=== PATIENT | female | born 1935 | race Caucasian/White ===

== ENCOUNTER 2021-02-02 14:51 | Outpatient (CLI) | payer MEDICARE, SELFPAY ==
[2021-02-02 15:01] LABS: Basophils Absolute Auto 0.05 K/mm3 (0.00-0.10); Basophils Percent Auto 0.5 % (0.0-1.0); Eosinophils Absolute Auto 0.35 K/mm3 (0.02-0.50); Eosinophils Percent Auto 3.3 % (1.0-6.0); Hematocrit 39.6 % (35.0-42.0); Hemoglobin 12.2 g/dL (11.7-13.8); Immature Granulocyte Absolute 0.05 K/mm3 (0.00-0.00); Immature Granulocyte Percent A 0.5 % (0.0-0.0); Lymphocytes Absolute Auto 1.42 K/mm3 (1.10-4.50); Lymphocytes Percent Auto 13.2 % (18.0-42.0); Mean Corpuscular HGB Conc 30.8 g/dL (32.0-36.0); Mean Corpuscular Hemoglobin 32.4 pg (27.0-31.0); Mean Platelet Volume 9.6 fl (9.2-11.8); Monocytes Absolute Auto 0.93 K/mm3 (0.10-0.90); Monocytes Percent Auto 8.7 % (2.0-11.0); Neutrophils Absolute Auto 7.9 K/mm3 (1.7-7.2); Neutrophils Percent Auto 73.8 % (50.0-70.0); Platelet Count Result 360 K/mm3 (150-420); Red Blood Count 3.77 M/mm3 (4.20-5.40); Red Cell Distribution Width 13.5 % (11.6-14.4); White Blood Count 10.7 K/mm3 (4.8-10.8)
== END 2021-02-02 14:52 | disposition home or self-care (01) ==
PROVIDERS: PCP Family Medicine; Visit Provider Family Medicine
DX: I10 Essential (primary) hypertension (principal)
CPT/HCPCS: 36415; 85025

== ENCOUNTER 2021-02-14 11:37 | Outpatient (NON) | payer MEDICARE, SELFPAY ==
[2021-02-21 01:25] LABS: Calprotectin, Stool 14 mcg/g
== END 2021-02-14 11:38 | disposition home or self-care (01) ==
LOC: CHSLAB 11:39
PROVIDERS: Visit Provider Family Medicine
DX: K52.9 Noninfective gastroenteritis and colitis, unspecified (principal)
CPT/HCPCS: 83993; 87045; 87177; 87209; 87324; 87427

== ENCOUNTER 2021-02-24 10:25 | Inpatient (IN) | payer MEDICARE, MEDICAID, SELFPAY ==
[2021-02-24] VITALS (12 sets, daily range): BP systolic 99–209; BP diastolic 44–88; PULSE 70–88; RESP 16–20; TEMP 36.1–36.5; O2SAT 98–100; BMI 22.6
--- NOTE | ~2021-02-24 | XR_ITS ---
XR chest 1V portable DATE: 02/24/2021 11:10 INDICATION: Shortness of breath TECHNIQUE: Portable AP chest on 02/24/2021 1107 hours COMPARISON: 03/17/2018 PA and lateral chest FINDINGS: There are patchy infiltrates involving primarily the mid and lower lung zones and bilateral pneumonia. No pleural effusion. No pulmonary vascular congestion or pneumothorax. Heart size is norm al. There is extensive thoracic aortic calcification. Diffuse osteopenia. Probable old healed left surgical humeral neck fracture. Status post left thoracotomy. IMPRESSION: Patchy bilateral pulmonary infiltrates suggesting Covid pneumonia Reviewed, dictated and finalized at location A. RANCE CLAIM AUDITOR
--- NOTE | 2021-02-24 10:32 | ED.SOB ---
HPI - SOB/Dyspnea General Chief Complaint: Shortness of Breath/Dyspnea Stated Complaint: ambulance Time Seen by Provider: 02/24/21 10:32 Source: patient Mode of arrival: ambulatory History of Present Illness HPI Narrative: 85-year-old female, assisted living facility resident, with a history of dementia, hypertension, generalized anxiety disorder, breast cancer, lung cancer, rib fractures, COPD on home oxygen presents to the ER with -- ongoing shortness of breath. She went to her primary care physician on 02/21/2021 and was ordered antibiotics which she never started. -- Generalized weakness. She called EMS who noted her oxygen saturations to be 97% on 3 L FiO2. The patient is noted to be -- hypertensive for which she received IV hydralazine. MD elicited complaint: shortness of breath and cough Onset (ago): day(s) ( Patient has chronic shortness of breath which has gotten worse over the past few days.) Context: anxiety Severity: moderate Exacerbating factors: exertion Relieving factors: nothing and oxygen Known history of: COPD Associated symptoms: other ( Profound weakness) Treatment prior to arrival: none Related Data Home oxygen amount: 3 liters Home Medications Medication Instructions Recorded Confirmed cholecalciferol (vitamin D3) 25 1,000 unit PO DAILY 01/22/19 02/24/21 mcg (1,000 unit) capsule magnesium 250 mg PO DAILY 02/24/21 02/24/21 melatonin 5 mg PO QHS PRN 02/24/21 02/24/21 Allergies Allergy/AdvReac Type Severity Reaction Status Date / Time Sulfa (Sulfonamide Allergy Unknown Unknown Verified 02/24/21 11:49 Antibiotics) Review of Systems Review of Systems: All systems reviewed & are unremarkable except as noted in HPI and below Constitutional: Constitutional: Reports as per HPI and Reports no additional constitutional complaints Eyes: Eyes: Reports as per HPI and Reports no additional eye complaints ENT: Reports system reviewed and no additional complaints, except as documented Cardiovascular: Cardiovascular: Reports as per HPI and Reports no additional cardiovascular complaints Respiratory: Respiratory: Reports as per HPI, Reports no additional respiratory complaints, Reports cough and Reports dyspnea Gastrointestinal: Gastrointestinal: Reports as per HPI and Reports diarrhea Comments: patient has a history of chronic diarrhea. She had a colonoscopy 10 years ago. Genitourinary: Genitourinary: Reports no additional female genitourinary complaints Musculoskeletal: Musculoskeletal: Reports no additional musculoskeletal complaints Integumentary/Breasts: Skin/Breast: Reports system reviewed and no additional complaints, except as docu Neurologic: Reports system reviewed and no additional complaints, except as documented Psychiatric: Psychiatric: Reports no additional psychiatric complaints Endocrine: Endocrine: Reports no additional endocrine complaints Hematologic/Lymphatic: Hematologic/Lymphatic: Reports no additional hematologic/lymphatic complaints Allergic/Immunologic: Allergic/Immunologic: Reports no additional allergic/immunologic complaints PMFSH Past Medical History Medical History Anemia Breast cancer 2006 COPD (chronic obstructive pulmonary disease) Dementia REGAN (generalized anxiety disorder) GERD (gastroesophageal reflux disease) Hypertension Lung cancer Dx'd in 2003 Multiple fractures of ribs, right side, subsequent encounter for fracture with routine healing Muscular deconditioning Osteoarthritis Osteoporosis Surgical History Surgical History H/O breast augmentation History of mastectomy Right Breast 2009 History of rhinoplasty Family History Family History Mother Endometrial cancer Father Medical history unknown Social History Social History (Reviewed
--- NOTE | 2021-02-24 10:42 | ECG_ITS ---
Measurements Intervals [place] Rate: 78 P: 71 NC: 169 QRS: 52 QRSD: 86 T: 63 QT: 355 QTc: 406 Interpretive Statements SINUS RHYTHM POSSIBLE LEFT ATRIAL ENLARGEMENT ST ABNORMALITY IN ANTEROLAT/INF LEADS- CONSIDER ISCHEMIA BASELINE ARTIFACT- I, II, III, AVR, AVL, AVF, V1-V2 ABNORMAL ECG Electronically Signed On 02-24-2021 14:43:02 THAW SHED HEATER TENDER by Stanley Ji D.O.
[2021-02-24] MEDS: hydrALAZINE HCL 20 MG/ML VIAL 10 MG IV PUSH (10:45)
[2021-02-24 11:09] LABS: Basophils Absolute Auto 0.04 K/mm3 (0.00-0.10); Basophils Percent Auto 0.3 % (0.0-1.0); Eosinophils Absolute Auto 0.03 K/mm3 (0.02-0.50); Eosinophils Percent Auto 0.2 % (1.0-6.0); Hematocrit 41.1 % (35.0-42.0); Hemoglobin 12.8 g/dL (11.7-13.8); Immature Granulocyte Absolute 0.06 K/mm3 (0.00-0.00); Immature Granulocyte Percent A 0.4 % (0.0-0.0); Lymphocytes Absolute Auto 3.06 K/mm3 (1.10-4.50); Lymphocytes Percent Auto 22.5 % (18.0-42.0); Mean Corpuscular HGB Conc 31.1 g/dL (32.0-36.0); Mean Corpuscular Hemoglobin 31.4 pg (27.0-31.0); Mean Corpuscular Volume 100.7 fL (78.0-102.0); Mean Platelet Volume 9.2 fl (9.2-11.8); Monocytes Percent Auto 8.1 % (2.0-11.0); Neutrophils Absolute Auto 9.3 K/mm3 (1.7-7.2); Neutrophils Percent Auto 68.5 % (50.0-70.0); Platelet Count Result 366 K/mm3 (150-420); Red Blood Count 4.08 M/mm3 (4.20-5.40); Red Cell Distribution Width 12.8 % (11.6-14.4); White Blood Count 13.6 K/mm3 (4.8-10.8)
[2021-02-24 11:30] LABS: Alanine Aminotransferase 15 U/L (14-59); Albumin Level 3.7 g/dL (3.4-5.0); Alkaline Phosphatase 67 U/L (46-116); Anion Gap 8 mmol/L (8-16); Aspartate Amino Transferase 16 U/L (15-37); Bilirubin,Total 0.3 mg/dL (0.00-1.00); Blood Urea Nitrogen 53 mg/dL (7-18); Calcium 9.1 mg/dL (8.5-10.1); Carbon Dioxide 32 mmol/L (21-32); Chloride 108 mmol/L (98-108); Estimated Glomerular Filt Rate 28; Glucose 104 mg/dL (70-99); NT Pro B Type Natriuretic Pept 1185 pg/mL (0-450); Osmolality Calculated 320 mOsm/kg (285-295); Potassium 4.4 mmol/L (3.5-5.1); Sodium 148 mmol/L (136-145); Troponin I 12.5 ng/L (0.00-60.4)
[2021-02-24 11:43] LABS: SARS-CoV-2 RNA PCR Negative (Negative)
--- NOTE | 2021-02-24 13:20 | PC.NURSE ---
Patient admitted to room 203, oriented to room and call light. Oxygen at 3L per nasal cannula, patient reports she is breathing much better than when she arrived in ER. Sitting up in bed, phone and call light within reach.
[2021-02-24] MEDS: GABAPENTIN 100 MG CAPSULE PO ×2 (14:09→17:37)
[2021-02-24] MEDS: ACETAMINOPHEN 325 MG TABLET 650 MG PO ×2 (14:09→21:37)
[2021-02-24] MEDS: LACTATED RINGERS 1,000 ML 100 ML IV CONT (19:35)
[2021-02-24] MEDS: HEPARIN SODIUM 5,000 UNITS/ML VIAL 5000 UNITS SUB-Q (22:08)
[2021-02-25] VITALS (8 sets, daily range): BP systolic 148–182; BP diastolic 62–67; PULSE 67–76; RESP 17–20; TEMP 36.2–36.8; O2SAT 98–100
--- NOTE | 2021-02-25 00:01 | PC.NURSE ---
Pt verbalized she is trying to get some rest and sleep and did not want vitals to be taken at this time.
--- NOTE | 2021-02-25 00:52 | PC.NURSE ---
Pt is currently sleeping on her right side with the bed in the lowest position for pt safety. Call light within reach.
--- NOTE | 2021-02-25 02:19 | PC.NURSE ---
Pt rounding completed. Pt is sleeping on her right side with the call light within reach.
[2021-02-25 05:54] LABS: Basophils Absolute Auto 0.01 K/mm3 (0.00-0.10); Basophils Percent Auto 0.1 % (0.0-1.0); Hematocrit 38.9 % (35.0-42.0); Hemoglobin 11.8 g/dL (11.7-13.8); Immature Granulocyte Absolute 0.11 K/mm3 (0.00-0.00); Immature Granulocyte Percent A 1.1 % (0.0-0.0); Lymphocytes Absolute Auto 1.03 K/mm3 (1.10-4.50); Lymphocytes Percent Auto 9.9 % (18.0-42.0); Mean Corpuscular HGB Conc 30.3 g/dL (32.0-36.0); Mean Corpuscular Hemoglobin 31.8 pg (27.0-31.0); Mean Corpuscular Volume 104.9 fL (78.0-102.0); Mean Platelet Volume 9.5 fl (9.2-11.8); Monocytes Absolute Auto 0.53 K/mm3 (0.10-0.90); Monocytes Percent Auto 5.1 % (2.0-11.0); Neutrophils Absolute Auto 8.7 K/mm3 (1.7-7.2); Neutrophils Percent Auto 83.8 % (50.0-70.0); Platelet Count Result 340 K/mm3 (150-420); Red Blood Count 3.71 M/mm3 (4.20-5.40); Red Cell Distribution Width 12.7 % (11.6-14.4); White Blood Count 10.4 K/mm3 (4.8-10.8)
[2021-02-25 06:00] LABS: Anion Gap 7 mmol/L (8-16); Blood Urea Nitrogen 46 mg/dL (7-18); Calcium 8.8 mg/dL (8.5-10.1); Carbon Dioxide 31 mmol/L (21-32); Chloride 106 mmol/L (98-108); Estimated Glomerular Filt Rate 36; Glucose 122 mg/dL (70-99); Osmolality Calculated 310 mOsm/kg (285-295); Potassium 4.4 mmol/L (3.5-5.1); Sodium 144 mmol/L (136-145)
[2021-02-25] MEDS: LACTATED RINGERS 1,000 ML 100 ML IV CONT ×2 (08:20→19:26)
[2021-02-25] MEDS: HEPARIN SODIUM 5,000 UNITS/ML VIAL 5000 UNITS SUB-Q ×2 (09:45→21:18)
[2021-02-25] MEDS: atenoloL 25 MG TABLET PO (09:46)
[2021-02-25] MEDS: MONTELUKAST SODIUM 10 MG TABLET PO (09:46)
[2021-02-25] MEDS: GABAPENTIN 100 MG CAPSULE PO ×3 (09:46→17:01)
[2021-02-25] MEDS: ESCITALOPRAM OXALATE 10 MG TABLET 20 MG PO (09:46)
[2021-02-25] MEDS: LOSARTAN POTASSIUM 50 MG TABLET PO (09:46)
[2021-02-25] MEDS: LORATADINE 10 MG TABLET PO (09:46)
[2021-02-25] MEDS: ATORVASTATIN 10 MG TABLET 20 MG PO (09:46)
[2021-02-25] MEDS: ACETAMINOPHEN 325 MG TABLET 650 MG PO ×2 (09:53→22:09)
--- NOTE | 2021-02-25 10:55 | PM.IMHP ---
H&P: HPI History of Present Illness Date/Time: 02/25/21 10:55 Karyn Bui is an 85 year old female who has been admitted for Pneumonia, Acute on Chronic Renal Failure, Dehydration, COPD. Pt states her SOB was going on for about a week. She states she saw her primary care provider who ordered her antibiotics but somehow the staff at [facility] did not get the script. The order was placed per the chart on that visit day. Pt states her breathing became progressively worse and needed to come to the ER for further workup. This morning she states he breathing is better. She states she has a cough that is sometimes productive of clear sputum. She feels congested. She denies fever, chills, chest pain, abdominal issues, urinary problems. Pt has a PMHx of Breast CA 2005, Dementia, HTN, Lung CA 2003. Chief Complaint: SOB Review of Systems Constitutional: Constitutional: Reports no additional constitutional complaints, Denies body ache(s), Denies chills, Denies fever(s) and Denies headache(s) Eyes: Eyes: Reports no additional eye complaints ENT: Reports as per HPI Cardiovascular: Cardiovascular: Reports no additional cardiovascular complaints, Denies chest pain and Denies chest pain at rest Respiratory: Respiratory: Reports as per HPI and Reports dyspnea (improved this AM) Gastrointestinal: Gastrointestinal: Reports no additional gastrointestinal complaints Genitourinary: Genitourinary: Reports no additional female genitourinary complaints Musculoskeletal: Musculoskeletal: Reports no additional musculoskeletal complaints Neurologic: Reports system reviewed and no additional complaints, except as documented Psychiatric: Psychiatric: Reports no additional psychiatric complaints PMFSH Past Medical History Medical History Anemia Breast cancer 2005 COPD (chronic obstructive pulmonary disease) Dementia REGAN (generalized anxiety disorder) GERD (gastroesophageal reflux disease) Hypertension Lung cancer Dx'd in 2003 Multiple fractures of ribs, right side, subsequent encounter for fracture with routine healing Muscular deconditioning Osteoarthritis Osteoporosis Surgical History Surgical History H/O breast augmentation History of mastectomy Right Breast 2009 History of rhinoplasty Family History Family History Mother Endometrial cancer Father Medical history unknown Social History Social History Smoking packs per day: 2 Smoking cigarettes per day: 40.0 Years smoked: 40 Smoking pack-years: 80.00 Smoking status: Former smoker Tobacco type: cigarettes Alcohol intake: never Substance use: never Additional living arrangements comments: [facility]. . 2 Children. 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 Spiritual care concerns: No Meds Home Medications and Allergies Home Medications Medication Instructions Recorded Confirmed Type cholecalciferol (vitamin D3) 25 1,000 unit PO DAILY 01/22/19 02/24/21 History mcg (1,000 unit) capsule albuterol sulfate 2.5 mg INHALATION Q4H PRN #75 ml 02/07/21 02/24/21 Rx albuterol sulfate 90 mcg/actuation 1 puff INHALATION Q4H PRN #8.5 gm 02/07/21 02/24/21 Rx aerosol inhaler acetaminophen 325 mg tablet 650 mg PO Q6H PRN #60 tablet 02/19/21 02/24/21 Rx acetaminophen 500 mg tablet 1,000 mg PO BID PRN 30 Days #60 02/19/21 02/24/21 Rx tablet atenolol 25 mg tablet 25 mg PO DAILY #30 tablet 02/19/21 02/24/21 Rx atorvastatin 20 mg tablet 20 mg PO DAILY #30 tablet 02/19/21 02/24/21 Rx cetirizine 10 mg tablet 10 mg PO DAILY #30 tablet 02/19/21 02/24/21 Rx chlorthalidone 25 mg tablet 25 mg PO DAILY #30 tablet 02/19/21 02/24/21 Rx donepezil 5 mg tablet 5 mg PO .QHS #30 tablet 12
[2021-02-25] MEDS: IPRATROPIUM 0.5 MG/ALBUTEROL SULFATE 2.5 MG AMPUL.NEB 3 ML INHALATION ×2 (14:27→22:40)
[2021-02-25] MEDS: guaiFENesin/DEXTROMETHORPHAN 5 ML UDC 10 ML PO ×2 (15:57→23:16)
--- NOTE | 2021-02-25 19:00 | PC.NURSE ---
Completed change of shift report with day shift nurse. Patient is resting comfortably in bed. Patient requested new ice water, and stated that she was not in any pain at this time. Patient did not need anything else at this time.
[2021-02-26] VITALS (14 sets, daily range): BP systolic 116–185; BP diastolic 49–68; PULSE 68–97; RESP 16–20; TEMP 36.4–36.6; O2SAT 87–100
--- NOTE | 2021-02-26 02:00 | PC.NURSE ---
Patient rounding completed. Patient is sleeping comfortably in bed, with no signs of pain or discomfort.
[2021-02-26 05:36] LABS: Basophils Absolute Auto 0.03 K/mm3 (0.00-0.10); Basophils Percent Auto 0.3 % (0.0-1.0); Eosinophils Absolute Auto 0.14 K/mm3 (0.02-0.50); Eosinophils Percent Auto 1.6 % (1.0-6.0); Hematocrit 36.3 % (35.0-42.0); Hemoglobin 10.8 g/dL (11.7-13.8); Immature Granulocyte Absolute 0.06 K/mm3 (0.00-0.00); Immature Granulocyte Percent A 0.7 % (0.0-0.0); Lymphocytes Absolute Auto 2.82 K/mm3 (1.10-4.50); Lymphocytes Percent Auto 31.9 % (18.0-42.0); Mean Corpuscular HGB Conc 29.8 g/dL (32.0-36.0); Mean Corpuscular Hemoglobin 31.6 pg (27.0-31.0); Mean Corpuscular Volume 106.1 fL (78.0-102.0); Mean Platelet Volume 9.6 fl (9.2-11.8); Monocytes Absolute Auto 0.76 K/mm3 (0.10-0.90); Monocytes Percent Auto 8.6 % (2.0-11.0); Neutrophils Percent Auto 56.9 % (50.0-70.0); Platelet Count Result 279 K/mm3 (150-420); Red Blood Count 3.42 M/mm3 (4.20-5.40); Red Cell Distribution Width 12.7 % (11.6-14.4); White Blood Count 8.8 K/mm3 (4.8-10.8)
[2021-02-26 06:03] LABS: Alanine Aminotransferase 18 U/L (14-59); Albumin Level 2.7 g/dL (3.4-5.0); Alkaline Phosphatase 56 U/L (46-116); Anion Gap 4 mmol/L (8-16); Aspartate Amino Transferase 23 U/L (15-37); Bilirubin,Total 0.2 mg/dL (0.00-1.00); Blood Urea Nitrogen 31 mg/dL (7-18); Calcium 8.6 mg/dL (8.5-10.1); Carbon Dioxide 32 mmol/L (21-32); Chloride 108 mmol/L (98-108); Estimated Glomerular Filt Rate 47; Glucose 88 mg/dL (70-99); NT Pro B Type Natriuretic Pept 3214 pg/mL (0-450); Osmolality Calculated 303 mOsm/kg (285-295); Potassium 3.8 mmol/L (3.5-5.1); Sodium 144 mmol/L (136-145); Total Protein 5.8 g/dL (6.4-8.2)
[2021-02-26] MEDS: IPRATROPIUM 0.5 MG/ALBUTEROL SULFATE 2.5 MG AMPUL.NEB 3 ML INHALATION ×2 (06:10→14:34)
[2021-02-26] MEDS: LACTATED RINGERS 1,000 ML 100 ML IV CONT (06:41)
[2021-02-26] MEDS: guaiFENesin/DEXTROMETHORPHAN 5 ML UDC 10 ML PO ×2 (06:42→15:00)
[2021-02-26] MEDS: ACETAMINOPHEN 325 MG TABLET 650 MG PO (09:17)
[2021-02-26] MEDS: LOSARTAN POTASSIUM 50 MG TABLET PO (09:18)
[2021-02-26] MEDS: GABAPENTIN 100 MG CAPSULE PO ×3 (09:18→16:44)
[2021-02-26] MEDS: MONTELUKAST SODIUM 10 MG TABLET PO (09:18)
[2021-02-26] MEDS: LORATADINE 10 MG TABLET PO (09:23)
[2021-02-26] MEDS: ATORVASTATIN 10 MG TABLET 20 MG PO (09:23)
[2021-02-26] MEDS: HEPARIN SODIUM 5,000 UNITS/ML VIAL 5000 UNITS SUB-Q (09:23)
[2021-02-26] MEDS: atenoloL 25 MG TABLET PO (09:23)
[2021-02-26] MEDS: ESCITALOPRAM OXALATE 10 MG TABLET 20 MG PO (09:23)
--- NOTE | 2021-02-26 14:13 | HOMEO2EVAL ---
Evaluation was performed at [facility] Home Oxygen Evaluation RC: Home Oxygen (O2) Evaluation Start: 02/26/21 11:17 Freq: ONCE Status: Active Protocol: RPE Activity Type Activity Date Activity User E-Sign Co-Sign Detail Recorded Client Recorded Date Recorded By Document 02/26/21 13:15 ANDRE [id number] 02/26/21 14:09 ANDRE Document 02/26/21 13:16 ANDRE [id number] 02/26/21 14:09 ANDRE Document 02/26/21 13:22 ANDRE [id number] 02/26/21 14:13 ANDRE 02/26/21 02/26/21 02/26/21 13:15 13:16 13:22 Home O2 Evaluation Test Phase Resting Resting Exercise Oxygen Delivery Room Air Nasal Cannula Nasal Cannula Oxygen Flow Rate (L/min) 1 1 Pulse Oximetry (90-100 %) 87 L 94 93 Pulse Rate (60-100 beats/min) 74 72 84 Activity Tolerance Fair Rating of Perceived Dyspnea (PD) +2 Mild, Some Difficulty, Noticeable to the Observer Rate of Perceived Exertion (PE) 13 Somewhat Hard Ambulation Distance (feet) 130 Home Oxygen Evaluation Comments Will start O2 Will begin walk patient walked at 1lpm pushing w/c on oxygen at 1lpm. maintained Spo2 >92% Treatment Charges O2 Evaluation - Inpatient
--- NOTE | 2021-02-26 15:02 | PM.DS ---
DS: Admitting Diagnosis Discharge Date 02/26/2021 <Antione SuttonGINI arnold - Last Filed: 02/26/21 15:25> Admitting Diagnosis Pneumonia, Acute on Chronic Renal Failure, Dehydration <Antione SuttonGINI arnold - Last Filed: 02/26/21 15:25> DS: Discharge Diagnosis Discharge Diagnosis (1) Pneumonia: Code(s): J18.9 - Pneumonia, unspecified organism <Antione SuttonGINI arnold - Last Filed: 02/26/21 15:25> Status: Acute <Antione SuttonDEJUAN arnoldC - Last Filed: 02/26/21 15:25> Assessment and Plan: Azithromycin, 3 L/min NC with SpO2 98%, Robitussin DM, monitoring respiratory status. 02/26/2021 Pt breathing is good, Pt uses oxygen at home but PRN, 6 minute walk test performed and she qualified for 1 L/min, will DC with Azithromycin to complete treatment. <Antione MurrayGINI Nieto - Last Filed: 02/26/21 15:25> (2) Acute on chronic renal failure: Code(s): N17.9 - Acute kidney failure, unspecified; N18.9 - Chronic kidney disease, unspecified <Antione Blackburn GINI Malone - Last Filed: 02/26/21 15:25> Status: Acute <Antione SuttonGINI arnold - Last Filed: 02/26/21 15:25> Assessment and Plan: Pt appears to be at her baseline which is near 1.3, small improvement since ER/admitted, continue gently hydration with IV LR 100/h, monitor renal function 02/26/2021 Renal function improved, looks better than estimated baseline, BUN 31, Cr 1.1, eCrCl Not Reportable, Calculated CrCl 32.5 ml/min, eGFR 47 <Antione MurrayGINI Nieto - Last Filed: 02/26/21 15:25> (3) Dehydration: Code(s): E86.0 - Dehydration <Antione MurrayGINI Nieto - Last Filed: 02/26/21 15:25> Status: Acute <Antione MurrayGINI Nieto - Last Filed: 02/26/21 15:25> Assessment and Plan: Pt has LR at 100 ml/h, She is taking PO fluids 02/26/2021 resolved <Antione Suttoncatalina HEARING CONSULTANT-C - Last Filed: 02/26/21 15:25> (4) COPD (chronic obstructive pulmonary disease): Code(s): J44.9 - Chronic obstructive pulmonary disease, unspecified <Antione Blackburn Faisal HEARING CONSULTANT-C - Last Filed: 02/26/21 15:25> Status: Acute <Antione Alexey Suttoncatalina, HEARING CONSULTANT-C - Last Filed: 02/26/21 15:25> Assessment and Plan: Albuterol PRN, Robitussin, DuoNeb scheduled 02/26/2021 6 minute walk test indicated 1 L/min needed at home, she was on PRN home O2 <Antione MurrayStephani Malone HEARING CONSULTANT-C - Last Filed: 02/26/21 15:25> (5) Hypertension: Code(s): I10 - Essential (primary) hypertension <Antione MurrayStephani Malone HEARING CONSULTANT-C - Last Filed: 02/26/21 15:25> Status: Acute <Antione Alexey Suttoncatalina, HEARING CONSULTANT-C - Last Filed: 02/26/21 15:25> Assessment and Plan: Continue Atenolol, Losartan, BP fluctuates 100-160s/50-80s HR 70s <Antione Blackburn Faisal, HEARING CONSULTANT-C - Last Filed: 02/26/21 15:25> (6) Dementia: Code(s): F03.90 - Unspecified dementia without behavioral disturbance <Antione TerriStephani Malone HEARING CONSULTANT-C - Last Filed: 02/26/21 15:25> Status: Acute <Antione Alexey Faisal, HEARING CONSULTANT-C - Last Filed: 02/26/21 15:25> Assessment and Plan: Continue Donepezil, Lexapro <Antione MurrayStephani Malone, HEARING CONSULTANT-C - Last Filed: 02/26/21 15:25> (7) REGAN (generalized anxiety disorder): Code(s): F41.1 - Generalized anxiety disorder <Antione MurrayStephani Malone, HEARING CONSULTANT-C - Last Filed: 02/26/21 15:25> Status: Acute <Antione S. Vogt, HEARING CONSULTANT-C - Last Filed: 02/26/21 15:25> Assessment and Plan: Continue Lexapro <GINI Samuels - Last Filed: 02/26/21 15:25> DS: Summary Hospital Course Hospital Course: Renal function improved, dehydration resolved, will send home with Azithromycin to complete course. <GINI Samuels - Last Filed: 02/26/21 15:25> Time Spent with Patient Time attestation: Total time spent providing and/or coordinating discharge services: < 30 Minutes <GINI Samuels - Last Filed: 02/26/21 15:25> Exam Const: General: cooperative, comfortable, no acute distress, well developed, alert, awake, Physically active
--- NOTE | 2021-02-26 17:30 | PC.NURSE ---
Discharge instructions reviewed with patient. Patient's son picking her up. Patient taken off floor per wheelchair, with O2 @2L per nasal cannula. Son unable to bring oxygen, to return canister after settling patient. Belongings sent with patient
--- NOTE | 2021-02-27 11:05 | PC.NURSE ---
PT states the [facility] has her instructions and they will take care of everything. Pt also states I had good care .
== END 2021-02-26 17:30 | disposition home health service (06) | DRG 194 ==
LOC: CHSED 10:33 → CHS2ND 02-26 11:00
PROVIDERS: Nurse Practitioner Family; Admitting Provider Internal Medicine Critical Care Medicine; Emergency Provider Internal Medicine Critical Care Medicine; PCP Family Medicine; Visit Provider Internal Medicine Critical Care Medicine
DX: J18.9 Pneumonia, unspecified organism (principal); N17.9 Acute kidney failure, unspecified; C34.90 Malignant neoplasm of unspecified part of unspecified bronchus or lung; I12.9 Hypertensive chronic kidney disease with stage 1 through stage 4 chronic kidney disease, or unspecified chronic kidney disease; N18.9 Chronic kidney disease, unspecified; E86.0 Dehydration; J44.9 Chronic obstructive pulmonary disease, unspecified; K21.9 Gastro-esophageal reflux disease without esophagitis; M81.0 Age-related osteoporosis without current pathological fracture; F03.90 Unspecified dementia, unspecified severity, without behavioral disturbance, psychotic disturbance, mood disturbance, and anxiety; F41.1 Generalized anxiety disorder; Z85.3 Personal history of malignant neoplasm of breast; Z99.81 Dependence on supplemental oxygen; Z20.822 Contact with and (suspected) exposure to COVID-19; Z87.891 Personal history of nicotine dependence
CPT/HCPCS: 36415; 71045; 80048; 80053; 83880; 84484; 85025; 87040; 93005; 94618; 94640; 96365; 96374; 96375; 99285; A9270; C9803; J0360; J0456; J0696; J1644; J7060; J7120; U0003; U0005

== ENCOUNTER 2021-03-12 08:57 | Outpatient (CLI) | payer OTHER, SELFPAY ==
--- NOTE | 2021-03-12 09:06 | EST_ITS ---
Patient Info Name: Karyn Bui Age: 85 years : 1935 Gender: Female Ht: 58 in Wt: 110 lbs BSA: 1.44 m2 HR: 58 bpm BP: 120 / 58 mmHg Heart Rhythm: Bradycardia Technical Quality: Good Exam Date: 03/12/2021 10:05 AM Exam Location: [facility] Patient Status: Outpatient Admit Date: 03/12/2021 Staff Ordering Physician: Jerel Reyes DO Attending Provider: Jerel Reyes DO Exercise Technologist: Leslie Christy CRT Exercise Physician: Fela Nagy CEP Exam Type: CA stress luiz w NM Study Info Indications SOB - ExerciseIntolerance - A nuclear stress test was performed. History/Risk Factors Hypertension: Yes Chronic Lung Disease: Yes Tobacco Use: Current - Frequency Unknown History/Risk Factors HTN. Smoker. Lung Disease. Summary 1. 1. Negative lexiscan stress test for ischemic ST changes by ECG criteria. 2. 2. Stable hemodynamics throughout the test. 3. 3. Nuclear scan to follow and doroteo be reported separately. Please correlate with it. Protocol: LEXISCAN Stress ECG Details Stage: REST Duration (min): 1 min : 2 sec HR (bpm): 59 SBP (mmHg): 120 DBP (mmHg): 58 Stage: REST Duration (min): 4 min : 8 sec HR (bpm): 56 SBP (mmHg): 120 DBP (mmHg): 58 Stage: STAGE 1 Duration (min): 0 min : 6 sec HR (bpm): 56 SBP (mmHg): 120 DBP (mmHg): 58 Stage: RECOVERY Duration (min): 0 min : 53 sec HR (bpm): 66 SBP (mmHg): 120 DBP (mmHg): 58 Stage: RECOVERY Duration (min): 1 min : 53 sec HR (bpm): 78 SBP (mmHg): 134 DBP (mmHg): 53 Stage: RECOVERY Duration (min): 2 min : 53 sec HR (bpm): 80 SBP (mmHg): 138 DBP (mmHg): 53 Stage: RECOVERY Duration (min): 3 min : 53 sec HR (bpm): 81 SBP (mmHg): 150 DBP (mmHg): 54 Stage: RECOVERY Duration (min): 4 min : 53 sec HR (bpm): 80 SBP (mmHg): 161 DBP (mmHg): 56 Stage: RECOVERY Duration (min): 5 min : 53 sec HR (bpm): 78 SBP (mmHg): 159 DBP (mmHg): 55 Stage: RECOVERY Duration (min): 6 min : 2 sec HR (bpm): 79 SBP (mmHg): 159 DBP (mmHg): 55 Rest HR: 56 bpm Peak HR: 83 bpm Rest Sys BP: 120 mmHg Peak Sys BP: 161 mmHg Max Pred HR: 137 bpm % Max Pred HR: 61 % Target HR: 116 bpm Max RPP: 13,363 bpm*mmHg BP Response: Patient exhibited a hypertensive response with stress Termination Reason: Completion of Protocol Cardiac Symptoms: Stomach Discomfort, Dyspnea Total Time: 0 min : 6 sec Rest Chavira BP: 58 mmHg Peak Chavira BP: 56 mmHg Total Dose: 0.4 mg Resting ECG Sinus bradycadia, cannot r/o septal infarct, age indeterminate. Stress ECG Borderline ST abnormality in inferior leads. Arrhythmias Occasional PVCs. Report Signatures
--- NOTE | 2021-03-12 11:48 | WPDCARIOSTRE ---
Nuclear Stress Test INDICATIONS Indications: Shortness of breath PROCEDURE Procedure Performed: Myocardial Perf Spect-Multi Procedure: Patient underwent a lexiscan stress test and immediately was injected with 29.4 mCi of cardiolyte. Multiple tomographic images were obtained. These are of good quality. There is no evidence of perfusion defects with stress imaging. A separate resting images were obtained after patient was injected with 9 mCi of cardiolyte. Multiple tomographic images were obtained. These are of good quality. There is no evidence of perfusion defects with rest imaging. CONCLUSION Conclusion: 1. Normal myocardial perfusion imaging demonstrating no perfusion defects during stress or rest imaging. 2. No evidence of reversible ischemia. 3. Left ventriculogram demonstrates a hyperdynamic LV systolic function with measured ejection fraction of 85%. No wall motion abnormalities. The LV is small with EDV at 18 ml. 4. TID score is normal at 0.83.
== END 2021-03-12 08:58 | disposition home or self-care (01) ==
PROVIDERS: PCP Family Medicine; Visit Provider Family Medicine
DX: R68.89 Other general symptoms and signs (principal); R06.02 Shortness of breath
CPT/HCPCS: 78452; 93017; A9502; J2785

== ENCOUNTER 2021-04-13 13:23 | Outpatient (CLI) | payer OTHER, SELFPAY ==
--- NOTE | ~2021-04-13 | US_ITS ---
EXAMINATION: US arterial ankle brachial ind DATE: 04/13/2021 14:26 INDICATION: Other specified symptoms and signs involving the circulatory system. TECHNIQUE: Segmental pressures and plethysmographic and Doppler waveforms of the brachial and lower e xtremity arteries were obtained. COMPARISON: None. FINDINGS: Right and left brachial artery pressures of 108 mm Hg and 119 mm Hg, respectively, are concordant (no rmal difference <= 30 mmHg). The right ankle-brachial index (KALLIE) is 1.36 (normal >= 0.9-1.0). The right great toe-brachial index (TBI) is 1.1 (normal >= 0.65). Arterial Doppler waveforms are at least biphasic at the ankle. The left KALLIE is 1.33. The left TBI is 0.92. Arterial Doppler waveforms are at least biphasic at the a nkle. IMPRESSION: 1. No significant arterial occlusive disease. Reviewed, dictated and finalized at location E. NT INTEGRATION MANAGER
== END 2021-04-13 13:24 | disposition home or self-care (01) ==
LOC: CHSIMG 13:25
PROVIDERS: PCP Family Medicine; Visit Provider Nurse Practitioner Family
DX: R09.89 Other specified symptoms and signs involving the circulatory and respiratory systems (principal)
CPT/HCPCS: 93922

== ENCOUNTER 2021-04-23 14:36 | Outpatient (NON) | payer OTHER, SELFPAY ==
[2021-04-23 15:05] LABS: Add Urine Microscopic? YES; Appearance Urine Clear (Clear); Bilirubin Urine Negative (Negative); Blood Urine Negative (Negative); Color Urine Light Yellow (Yellow); Glucose Urine UA Negative (Negative); Ketones Urine Trace (Negative); Leukocyte Esterase Ur 1+ LEU/UL (Negative); Nitrate Urine Positive (Negative); Protein Urine Negative (Negative); Specific Grav Ur 1.025 (1.010-1.020); Urobilinogen Urine 0.2 mg/dL (0.2-1.0); pH Urine 5.5 (5.0-8.0)
[2021-04-23 15:13] LABS: RBC Urine None seen /hpf (0-2); Squamous Epithelial Cell Urine Few /hpf (Few)
[2021-04-23 15:14] LABS: Bacteria Urine 4+ /hpf
== END 2021-04-23 14:37 | disposition home or self-care (01) ==
LOC: CHSLAB 14:38
PROVIDERS: Visit Provider Family Medicine
DX: R41.0 Disorientation, unspecified (principal)
CPT/HCPCS: 81001; 87077; 87086; 87088; 87186

== ENCOUNTER 2021-04-24 14:43 | Outpatient (NON) | payer OTHER, SELFPAY ==
[2021-04-24 15:03] LABS: Basophils Absolute Auto 0.04 K/mm3 (0.00-0.10); Basophils Percent Auto 0.5 % (0.0-1.0); Eosinophils Absolute Auto 0.21 K/mm3 (0.02-0.50); Eosinophils Percent Auto 2.4 % (1.0-6.0); Hematocrit 39.2 % (35.0-42.0); Hemoglobin 11.4 g/dL (11.7-13.8); Immature Granulocyte Absolute 0.06 K/mm3 (0.00-0.00); Immature Granulocyte Percent A 0.7 % (0.0-0.0); Lymphocytes Absolute Auto 1.04 K/mm3 (1.10-4.50); Mean Corpuscular HGB Conc 29.1 g/dL (32.0-36.0); Mean Corpuscular Hemoglobin 31.6 pg (27.0-31.0); Mean Corpuscular Volume 108.6 fL (78.0-102.0); Mean Platelet Volume 10.5 fl (9.2-11.8); Monocytes Absolute Auto 0.48 K/mm3 (0.10-0.90); Monocytes Percent Auto 5.5 % (2.0-11.0); Neutrophils Absolute Auto 6.9 K/mm3 (1.7-7.2); Neutrophils Percent Auto 78.9 % (50.0-70.0); Platelet Count Result 349 K/mm3 (150-420); Red Blood Count 3.61 M/mm3 (4.20-5.40); Red Cell Distribution Width 13.6 % (11.6-14.4); White Blood Count 8.7 K/mm3 (4.8-10.8)
[2021-04-24 15:38] LABS: Alanine Aminotransferase 19 U/L (14-59); Albumin Level 3.4 g/dL (3.4-5.0); Alkaline Phosphatase 60 U/L (46-116); Anion Gap 8 mmol/L (8-16); Aspartate Amino Transferase 26 U/L (15-37); Bilirubin,Total 0.4 mg/dL (0.00-1.00); Blood Urea Nitrogen 63 mg/dL (7-18); Calcium 8.9 mg/dL (8.5-10.1); Carbon Dioxide 39 mmol/L (21-32); Chloride 104 mmol/L (98-108); Estimated Glomerular Filt Rate 21; Free T4 Free Thyroxine 1.06 ng/dL (0.76-1.46); Glucose 122 mg/dL (70-99); Iron 88 ug/dL (50-170); Magnesium 2.1 mg/dL (1.8-2.4); Osmolality Calculated 331 mOsm/kg (285-295); Potassium 4.5 mmol/L (3.5-5.1); Sodium 151 mmol/L (136-145); Thyroid Stimulating Hormone 0.44 uIU/mL (0.36-3.74); Total Protein 6.8 g/dL (6.4-8.2); Vitamin B12 964 pg/mL (193-986)
[2021-04-26 14:11] LABS: Vitamin D 25 Hydroxy 56 ng/mL (30-100)
== END 2021-04-24 14:44 | disposition home or self-care (01) ==
LOC: CHSLAB 14:44
PROVIDERS: Visit Provider Nurse Practitioner Family
DX: R53.83 Other fatigue (principal); Z79.899 Other long term (current) drug therapy; D64.9 Anemia, unspecified
CPT/HCPCS: 80053; 82306; 82607; 83540; 83735; 84439; 84443; 85025

== ENCOUNTER 2021-04-25 16:27 | Observation (INO) | payer OTHER, SELFPAY ==
--- NOTE | 2021-04-25 16:39 | ED.WEAKNESS ---
HPI - Weakness General Chief complaint: Weakness Stated complaint: not eating or drinking,weakness- sent by doctor Time Seen by Provider: 04/25/21 16:39 Source: patient and family History of Present Illness HPI Narrative: 85-year-old female, with dementia, recurrent delirium secondary to urinary tract infection, G 80, hypertension, COPD on home oxygen 3 liters/minute, chronic renal insufficiency, arthritis/ osteoporosis, breast cancer in 2005, lung cancer in 2003, pneumonia on 02/24/2021 for which she was admitted with a recent normal KALLIE and a negative stress test on 03/12/2021 had -- UTI diagnosed on 04/23/2021 and started on nitrofurantoin. the patient has had recurrent UTIs with hallucinations. -- seen by BELT MEASURER Madhavi for fatigue, weakness, deconditioning, urinary and fecal incontinence, decreased p.o. intake and decreased ability to move around. These symptoms started after she had a nap pneumonia on 02/24/2021. The patient had blood work done yesterday which revealed -- acute on chronic renal failure with a BUN/creatinine of 63/2.2 with a sodium 151. The patient is brought into the ER by her son Complaint: generalized weakness Onset (ago): month(s) ( Two months) Duration: constant Location: generalized Severity: moderate Relieving factors: none Exacerbating factors: none Context: recent illness ( pneumonia 2 months ago) Associated symptoms: denies other symptoms, confusion and loss of appetite Related Data Home Medications Medication Instructions Recorded Confirmed melatonin 5 mg PO QHS PRN 02/24/21 04/24/21 Lactobacill 1 cap PO DAILY 04/11/21 04/24/21 acidophilus-L.helvetic-B.bifidum 250 million cell capsule chlorthalidone 25 mg PO DAILY 04/25/21 04/25/21 Allergies Allergy/AdvReac Type Severity Reaction Status Date / Time Sulfa (Sulfonamide Allergy Unknown Unknown Verified 04/24/21 15:49 Antibiotics) Review of Systems Review of Systems: All systems reviewed & are unremarkable except as noted in HPI and below Constitutional: Constitutional: Reports as per HPI and Reports no additional constitutional complaints Eyes: Eyes: Reports as per HPI and Reports no additional eye complaints ENT: Reports system reviewed and no additional complaints, except as documented Cardiovascular: Cardiovascular: Reports as per HPI and Reports no additional cardiovascular complaints Respiratory: Respiratory: Reports as per HPI and Reports cough Gastrointestinal: Gastrointestinal: Reports as per HPI and Reports no additional gastrointestinal complaints Comments: fecal incontinence Genitourinary: Genitourinary: Reports no additional female genitourinary complaints and Reports urinary incontinence Musculoskeletal: Musculoskeletal: Reports no additional musculoskeletal complaints Integumentary/Breasts: Skin/Breast: Reports system reviewed and no additional complaints, except as docu Neurologic: Reports system reviewed and no additional complaints, except as documented Psychiatric: Comments: history of dementia and intermittent hallucinations Endocrine: Endocrine: Reports no additional endocrine complaints Hematologic/Lymphatic: Hematologic/Lymphatic: Reports no additional hematologic/lymphatic complaints Allergic/Immunologic: Allergic/Immunologic: Reports no additional allergic/immunologic complaints PMFSH Past Medical History Medical History Anemia Breast cancer 2006 COPD (chronic obstructive pulmonary disease) Dementia REGAN (generalized anxiety disorder) GERD (gastroesophageal reflux disease) Hypertension Lung cancer Dx'd in 2003 Multiple fractures of ribs, right side, subsequent encounter for fracture with routine healing Muscular deconditioning Osteoarthritis Osteoporosis Surgical History Surgical History H/O breast augmentation History of mastectomy Right Breast 2009 History of rh
[2021-04-25 16:50] VITALS: BP 145/49; PULSE 64; RESP 20; TEMP 36.4; O2SAT 100
--- NOTE | 2021-04-25 17:00 | ECG_ITS ---
Measurements Intervals [place] Rate: 58 P: 75 [place]: 155 QRS: 63 QRSD: 86 T: 61 QT: 415 QTc: 411 Interpretive Statements SINUS BRADYCARDIA BASELINE ARTIFACT- I, II, III, AVR, AVL, AVF, V3-V6 BORDERLINE ECG Electronically Signed On 04-25-2021 20:07:04 RN CAMP by Stanley Ji D.O.
[2021-04-25 17:29] LABS: Partial Thromboplastin Time 25.3 SEC (23.90-30.70); Prothrombin Time 10.6 Seconds (9.50-12.10)
[2021-04-25 17:30] VITALS: BP 130/62; PULSE 58; RESP 20; O2SAT 100
[2021-04-25 17:35] LABS: SARS-CoV-2 Ag Negative (Negative)
[2021-04-25 17:40] LABS: Anion Gap 6 mmol/L (8-16); Blood Urea Nitrogen 52 mg/dL (7-18); Calcium 8.9 mg/dL (8.5-10.1); Carbon Dioxide 37 mmol/L (21-32); Chloride 104 mmol/L (98-108); Estimated Glomerular Filt Rate 31; Glucose 119 mg/dL (70-99); NT Pro B Type Natriuretic Pept 1420 pg/mL (0-450); Osmolality Calculated 319 mOsm/kg (285-295); Potassium 3.8 mmol/L (3.5-5.1); Sodium 147 mmol/L (136-145); Thyroid Stimulating Hormone 0.95 uIU/mL (0.36-3.74); Troponin I 45.9 ng/L (0.00-60.4)
[2021-04-25 18:20] VITALS: BP 146/75; PULSE 60; RESP 20; O2SAT 98
[2021-04-25 18:45] VITALS: BP 132/62; PULSE 61; RESP 20; TEMP 36.6; O2SAT 100
[2021-04-25 19:00] VITALS: BP 173/52; PULSE 60; RESP 18; TEMP 36.7; O2SAT 100; O2SAT 95
--- NOTE | 2021-04-25 19:58 | ADMGEN ---
This patient, Karyn Bui, was admitted to 2nd Floor Room 205-2. Patient oriented to hospital policies and general routines including ID bracelet, bed and alarms, visiting hours, pain management, procedures, bathroom and other care routines, personal items, smoking policy, room service/diet, and visiting hours. Information on how to activate the Rapid Response Team has been discussed. Patient are encouraged to report perceived risks to care and to ask questions if they do not understand what they are told or what they should do.
[2021-04-25 20:00] VITALS: PULSE 66; RESP 18; O2SAT 99
[2021-04-25 20:01] VITALS: BMI 20.6
[2021-04-25] MEDS: DONEPEZIL HCL 5 MG TABLET PO (20:46)
[2021-04-25] MEDS: MELATONIN 5 MG TABLET PO (20:46)
[2021-04-25] MEDS: GABAPENTIN 100 MG CAPSULE PO (20:46)
[2021-04-25] MEDS: PHARMACIST COMMUNICATION ORDER 1 EACH XX (20:53)
[2021-04-25 23:47] LABS: Add Urine Microscopic? YES; Appearance Urine Clear (Clear); Bilirubin Urine Negative (Negative); Blood Urine Negative (Negative); Color Urine Light Yellow (Yellow); Glucose Urine UA Negative (Negative); Ketones Urine Negative (Negative); Leukocyte Esterase Ur Negative (Negative); Nitrate Urine Positive (Negative); Protein Urine Negative (Negative); Urobilinogen Urine 0.2 mg/dL (0.2-1.0); pH Urine 5.5 (5.0-8.0)
[2021-04-26] VITALS: BP 146/52; PULSE 61; RESP 18; TEMP 36; O2SAT 95
[2021-04-26 00:29] LABS: Bacteria Urine 2+ /hpf; RBC Urine 0-2 /hpf (0-2); Squamous Epithelial Cell Urine Rare /hpf (Few)
[2021-04-26 05:21] LABS: Basophils Absolute Auto 0.03 K/mm3 (0.00-0.10); Basophils Percent Auto 0.4 % (0.0-1.0); Eosinophils Absolute Auto 0.42 K/mm3 (0.02-0.50); Eosinophils Percent Auto 5.5 % (1.0-6.0); Hematocrit 35.1 % (35.0-42.0); Hemoglobin 10.2 g/dL (11.7-13.8); Immature Granulocyte Absolute 0.03 K/mm3 (0.00-0.00); Immature Granulocyte Percent A 0.4 % (0.0-0.0); Lymphocytes Absolute Auto 1.55 K/mm3 (1.10-4.50); Lymphocytes Percent Auto 20.5 % (18.0-42.0); Mean Corpuscular HGB Conc 29.1 g/dL (32.0-36.0); Mean Corpuscular Hemoglobin 30.7 pg (27.0-31.0); Mean Corpuscular Volume 105.7 fL (78.0-102.0); Monocytes Absolute Auto 0.85 K/mm3 (0.10-0.90); Monocytes Percent Auto 11.2 % (2.0-11.0); Neutrophils Absolute Auto 4.7 K/mm3 (1.7-7.2); Platelet Count Result 277 K/mm3 (150-420); Red Blood Count 3.32 M/mm3 (4.20-5.40); Red Cell Distribution Width 13.2 % (11.6-14.4); White Blood Count 7.6 K/mm3 (4.8-10.8)
[2021-04-26 05:30] LABS: Anion Gap 3 mmol/L (8-16); Blood Urea Nitrogen 40 mg/dL (7-18); Calcium 8.5 mg/dL (8.5-10.1); Carbon Dioxide 39 mmol/L (21-32); Chloride 104 mmol/L (98-108); Estimated Glomerular Filt Rate 45; Glucose 85 mg/dL (70-99); Osmolality Calculated 310 mOsm/kg (285-295); Potassium 3.7 mmol/L (3.5-5.1); Sodium 146 mmol/L (136-145)
[2021-04-26 07:44] VITALS: BP 136/46; PULSE 60; RESP 16; TEMP 36.4; O2SAT 96
[2021-04-26] MEDS: PANTOPRAZOLE SODIUM IV 40 MG VIAL IV PUSH (08:16)
[2021-04-26] MEDS: ENOXAPARIN 30 MG/0.3 ML SYRINGE SUB-Q (08:16)
[2021-04-26] MEDS: LOSARTAN POTASSIUM 50 MG TABLET PO (08:17)
[2021-04-26] MEDS: GABAPENTIN 100 MG CAPSULE PO (08:17)
[2021-04-26] MEDS: MONTELUKAST SODIUM 10 MG TABLET PO (08:17)
[2021-04-26] MEDS: LORATADINE 10 MG TABLET PO (08:18)
[2021-04-26] MEDS: ESCITALOPRAM OXALATE 10 MG TABLET 20 MG PO (08:18)
[2021-04-26] MEDS: SACCHAROMYCES BOULARDII 250 MG CAPSULE PO ×2 (08:56→12:25)
[2021-04-26] MEDS: AMOXICILLIN/CLAVULANATE K 875-125 MG TAB 1 TABLET PO (10:06)
--- NOTE | 2021-04-26 11:21 | PM.IMHP ---
H&P: HPI History of Present Illness Date/Time: 04/26/21 11:21 this is a 85-year-old female with a past medical history of anemia, breast cancer, COPD, dementia, anxiety, GERD, hypertension, lung cancer, osteoarthritis, ostial porosis and multiple fractures of the ribs of right side status post fall. Patient visited her primary care physician 1 day before coming to our emergency department at that time patient was treated for urinary tract infection with Macrobid's. Patient is a resident in an assisted living and notes that since she was diagnosed with pneumonia back in January she has continued to be weak with a decreased appetite. Patient son would like to have her placed in a [place] [facility] for rehab. Patient labs have improved since previous day her WBCs 8.7 hemoglobin 11.4 hematocrit 39.2 platelets 349 sodium 147, potassium 3.8, BUN 52, creatinine 1.58, glucose 119, BNP 1420,, UA with the growth of E. coli. Patient will discharge to a SNF and will be treated for her UTI with Augmentin. The patient denies SOB, CP, palpitation, extremity numbness, lightheadedness, dizziness, constipation, diarrhea, chills, or fever. Patient notes that she still continues to be weak with decreased appetite. She does wear supplementary oxygen at 1 L. Chief Complaint: weakness, uti Review of Systems Review of Systems: A 14 organ system Review of Systems was performed and pertinent positives included in the HPI, otherwise remaining ROS is negative. [facility] Past Medical History Medical History Anemia Breast cancer 2005 COPD (chronic obstructive pulmonary disease) Dementia REGAN (generalized anxiety disorder) GERD (gastroesophageal reflux disease) Hypertension Lung cancer Dx'd in 2003 Multiple fractures of ribs, right side, subsequent encounter for fracture with routine healing Muscular deconditioning Osteoarthritis Osteoporosis Surgical History Surgical History H/O breast augmentation History of mastectomy Right Breast 2009 History of rhinoplasty Family History Family History Mother Endometrial cancer Father Medical history unknown Social History Social History Smoking packs per day: 2 Smoking cigarettes per day: 40.0 Years smoked: 40 Smoking pack-years: 80.00 Smoking status: Former smoker Tobacco type: cigarettes Second hand tobacco smoke exposure: No Additional smoking assessment comments: pt unable to remember how long she smoked or when she started/stopped Alcohol intake: never Substance use: never Substance use type: does not use Additional living arrangements comments: [facility]. . 2 Children. Additional occupation/education comments: Prior Occupation: Grounds Supervisor Spiritual care concerns: No Meds Home Medications and Allergies Home Medications Medication Instructions Recorded Confirmed Type albuterol sulfate 2.5 mg INHALATION Q4H PRN #75 ml 02/07/21 04/25/21 Rx albuterol sulfate 90 mcg/actuation 1 puff INHALATION Q4H PRN #8.5 gm 02/07/21 04/25/21 Rx aerosol inhaler acetaminophen 325 mg tablet 650 mg PO Q6H PRN #60 tablet 02/19/21 04/25/21 Rx acetaminophen 500 mg tablet 1,000 mg PO BID PRN 30 Days #60 02/19/21 04/25/21 Rx tablet atenolol 25 mg tablet 25 mg PO DAILY #30 tablet 02/19/21 04/25/21 Rx atorvastatin 20 mg tablet 20 mg PO DAILY #30 tablet 02/19/21 04/25/21 Rx cetirizine 10 mg tablet 10 mg PO DAILY #30 tablet 02/19/21 04/25/21 Rx donepezil 5 mg tablet 5 mg PO .QHS #30 tablet 02/19/21 04/25/21 Rx escitalopram oxalate 20 mg tablet 20 mg PO DAILY #30 tablet 02/19/21 04/25/21 Rx losartan 50 mg tablet 50 mg PO DAILY #30 tablet 02/19/21 04/25/21 Rx montelukast 10 mg tablet 10 mg PO DAILY #30 tablet 02/19/21 04/25/21 Rx luisana
--- NOTE | 2021-04-26 13:24 | PC.NURSE ---
Urinary catheter removed. Patient tolerated well. 150 ml clear yellow urine at time of removal.
[2021-04-26 16:00] VITALS: BP 117/50; PULSE 70; RESP 18; TEMP 36.6; O2SAT 98
--- NOTE | 2021-04-26 16:53 | PC.NURSE ---
Addendum entered by Macrina Luis RN 04/26/21 16:55: Cont. Report called to Heidi at [facility]. Patient left floor at 1631. Original Note: Patient discharged to [facility] for skilled care. Discharge instructions reviewed with patient and her son Ad. Voiced understanding. Patient's belongings sent with her at discharge. Rep
[2021-04-26 17:00] VITALS: O2SAT 98
--- NOTE | 2021-04-30 11:21 | PC.NURSE ---
No questions or concerns from facility patient dc to, recieved all paperwork
== END 2021-04-26 16:35 ==
LOC: CHSED 18:11 → CHS2ND 18:23
PROVIDERS: Nurse Practitioner; Admitting Provider Internal Medicine; Emergency Provider Internal Medicine Critical Care Medicine; PCP Family Medicine; Visit Provider Internal Medicine
DX: N39.0 Urinary tract infection, site not specified (principal); E87.0 Hyperosmolality and hypernatremia; F03.90 Unspecified dementia, unspecified severity, without behavioral disturbance, psychotic disturbance, mood disturbance, and anxiety; I10 Essential (primary) hypertension; J44.9 Chronic obstructive pulmonary disease, unspecified; Z99.81 Dependence on supplemental oxygen; M81.0 Age-related osteoporosis without current pathological fracture; I12.9 Hypertensive chronic kidney disease with stage 1 through stage 4 chronic kidney disease, or unspecified chronic kidney disease; N18.32 Chronic kidney disease, stage 3b; N17.9 Acute kidney failure, unspecified; Z85.3 Personal history of malignant neoplasm of breast; Z85.118 Personal history of other malignant neoplasm of bronchus and lung; F41.1 Generalized anxiety disorder; M19.90 Unspecified osteoarthritis, unspecified site; K21.9 Gastro-esophageal reflux disease without esophagitis; Z87.891 Personal history of nicotine dependence; Z20.822 Contact with and (suspected) exposure to COVID-19
CPT/HCPCS: 36415; 80048; 81001; 83880; 84443; 84484; 85025; 85610; 85730; 87426; 93005; 96365; 96366; 96372; 96375; 97161; 99285; A9270; C9113; C9803; G0378; J0696; J1650

== ENCOUNTER 2021-06-26 06:53 | Outpatient (NON) | payer OTHER, SELFPAY ==
[2021-06-26 07:40] LABS: Anion Gap 0 mmol/L (8-16); Blood Urea Nitrogen 25 mg/dL (7-18); Calcium 8.8 mg/dL (8.5-10.1); Carbon Dioxide 45 mmol/L (21-32); Chloride 100 mmol/L (98-108); Estimated Glomerular Filt Rate 46; Glucose 85 mg/dL (70-99); Osmolality Calculated 303 mOsm/kg (285-295); Potassium 4.1 mmol/L (3.5-5.1); Sodium 145 mmol/L (136-145)
== END 2021-06-26 06:54 | disposition home or self-care (01) ==
LOC: CHSLAB 06:55
PROVIDERS: Visit Provider Family Medicine
DX: N18.30 Chronic kidney disease, stage 3 unspecified (principal); J44.9 Chronic obstructive pulmonary disease, unspecified
CPT/HCPCS: 36415; 80048

== ENCOUNTER 2021-07-05 08:57 | Outpatient (CLI) | payer OTHER, SELFPAY ==
--- NOTE | ~2021-07-05 | XR_ITS ---
EXAMINATION: XR abdomen/kub 1V INDICATION: Possible foreign body ingestion TECHNIQUE: Supine views of the abdomen were obtained on 2 radiographs. COMPARISON: 05/30/2014 FINDINGS: There are phleboliths of the pelvis. No definite ingested radiopaque foreign body is identi fied. The bowel gas pattern is normal. Lumbar spondylosis. Severe osteoarthritis is also noted in the hips. 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 There are healed rib fractures. IMPRESSION: 1. No definite ingested radiopaque foreign body identified. Reviewed, dictated and finalized at location B.
== END 2021-07-05 08:58 | disposition home or self-care (01) ==
LOC: CHSIMG 08:59
PROVIDERS: PCP Family Medicine; Visit Provider Family Medicine
DX: T18.9XXA Foreign body of alimentary tract, part unspecified, initial encounter (principal)
CPT/HCPCS: 74018

== ENCOUNTER 2021-07-12 06:47 | Outpatient (NON) | payer OTHER, SELFPAY ==
[2021-07-12 06:57] LABS: Basophils Absolute Auto 0.02 K/mm3 (0.00-0.10); Basophils Percent Auto 0.3 % (0.0-1.0); Eosinophils Percent Auto 3.1 % (1.0-6.0); Hemoglobin 8.7 g/dL (11.7-13.8); Immature Granulocyte Absolute 0.04 K/mm3 (0.00-0.00); Immature Granulocyte Percent A 0.6 % (0.0-0.0); Lymphocytes Absolute Auto 1.07 K/mm3 (1.10-4.50); Lymphocytes Percent Auto 16.6 % (18.0-42.0); Mean Corpuscular Hemoglobin 32.2 pg (27.0-31.0); Mean Corpuscular Volume 111.1 fL (78.0-102.0); Mean Platelet Volume 10.7 fl (9.2-11.8); Monocytes Percent Auto 10.9 % (2.0-11.0); Neutrophils Absolute Auto 4.4 K/mm3 (1.7-7.2); Neutrophils Percent Auto 68.5 % (50.0-70.0); Platelet Count Result 253 K/mm3 (150-420); Red Cell Distribution Width 12.4 % (11.6-14.4); White Blood Count 6.4 K/mm3 (4.8-10.8)
[2021-07-12 06:58] LABS: Add Urine Microscopic? NO; Appearance Urine Clear (Clear); Bilirubin Urine Negative (Negative); Blood Urine Negative (Negative); Color Urine Light Yellow (Yellow); Glucose Urine UA Negative (Negative); Ketones Urine Negative (Negative); Leukocyte Esterase Ur Negative LEU/UL (Negative); Nitrate Urine Negative (Negative); Protein Urine Negative (Negative); Urobilinogen Urine 0.2 mg/dL (0.2-1.0); pH Urine 5.5 (5.0-8.0)
[2021-07-12 07:26] LABS: Alanine Aminotransferase 10 U/L (14-59); Albumin Level 2.8 g/dL (3.4-5.0); Alkaline Phosphatase 48 U/L (46-116); Aspartate Amino Transferase 18 U/L (15-37); Bilirubin,Total 0.3 mg/dL (0.00-1.00); Blood Urea Nitrogen 23 mg/dL (7-18); Calcium 8.7 mg/dL (8.5-10.1); Chloride 100 mmol/L (98-108); Estimated Glomerular Filt Rate 53; Glucose 75 mg/dL (70-99); Magnesium 1.6 mg/dL (1.8-2.4); Osmolality Calculated 300 mOsm/kg (285-295); Potassium 3.9 mmol/L (3.5-5.1); Sodium 144 mmol/L (136-145); Thyroid Stimulating Hormone 1.06 uIU/mL (0.36-3.74); Total Protein 6.1 g/dL (6.4-8.2)
[2021-07-12 08:38] LABS: Carbon Dioxide > 45 mmol/L (21-32)
[2021-07-12 09:56] LABS: Folic Acid 5.9 ng/mL (8.6->20); Vitamin B12 386 pg/mL (193-986)
== END 2021-07-12 06:48 | disposition home or self-care (01) ==
LOC: CHSLAB 06:50
PROVIDERS: Visit Provider Family Medicine
DX: R41.0 Disorientation, unspecified (principal); E53.8 Deficiency of other specified B group vitamins
CPT/HCPCS: 36415; 80053; 81003; 82607; 82746; 83735; 84443; 85025